=== PATIENT | male | born 1945 | race American Indian/Alaskan Native ===

== ENCOUNTER 2017-12-24 05:55 | Day surgery (SDC) | payer MEDICARE ==
[2017-12-24] MEDS ORDERED: NACL 0.9% 500 ML 500 ML ONE (06:45)
[2017-12-24] MEDS ORDERED: NACL 0.9% 500 ML 500 ML IV SCH (07:00)
[2017-12-24 07:10] LABS: Basophils % (Auto) 0.3 % (0.0-1.8); Eosinophils # (Auto) 0.2 K/mm3 (0.0-0.4); Eosinophils % (Auto) 2.6 % (0.0-4.3); Hematocrit 38.6 % (35.5-45.6); Hemoglobin 13.2 gm/dl (11.8-15.2); Lymphocytes # (Auto) 1.8 K/mm3 (1.2-5.4); Lymphocytes % (Auto) 26.4 % (13.4-35.0); Mean Corpuscular HGB Conc 34 % (32-34); Mean Corpuscular Hemoglobin 30 pg (28-32); Mean Corpuscular Volume 86 fl (84-94); Monocytes % (Auto) 14.5 % (0.0-7.3); Platelet Count 322 K/mm3 (140-440); Red Blood Count 4.47 M/mm3 (3.65-5.03); Red Cell Distribution Width 15.3 % (13.2-15.2)
[2017-12-24 07:21] LABS: INR 1.05 (0.87-1.13)
[2017-12-24 07:24] LABS: BUN/Creatinine Ratio 10; Blood Urea Nitrogen 5 mg/dL (9-20); Calcium 9.5 mg/dL (8.4-10.2); Hemolysis Index 3
[2017-12-24] MEDS ORDERED: HEPARIN/NS 5000 UNIT/500ML(CATH LAB) 1,000 ML IR ONE (10:03)
[2017-12-24] MEDS ORDERED: HEPARIN 10,000 UNITS/10 ML ONE (10:03)
[2017-12-24] MEDS ORDERED: NITROGLYCERIN SYRINGE 3 ML ONE (10:04)
[2017-12-24] MEDS ORDERED: CALAN ONE (10:04)
[2017-12-24] MEDS: SUBLIMAZE ONE ×2 (10:24→10:26)
[2017-12-24] MEDS: XYLOCAINE 2% INFILTRATI ONE ×2 (10:24→10:26)
[2017-12-24] MEDS: VERSED ONE ×2 (10:24→10:26)
--- NOTE | 2017-12-24 12:24 | Discharge Summary ---
Short Stay Discharge Plan Activity: advance as tolerated Weight Bearing Status: Full Weight Bearing Diet: low fat, low cholesterol, low salt, diabetic Wound: keep clean and dry Special Instructions: no heavy lifting (3 days), hold Metformin (48 hrs only) Follow up with: ERUM DOSS MD [Primary Care Provider] - 7 Days AUGUSTA SILVA MD [Staff Physician] - 7 Days Forms: [facility] PCI D/C Instructions
[2017-12-24] MEDS ORDERED: NACL 0.9% 1000 ML 1,000 ML IV SCH (13:00)
--- NOTE | 2017-12-24 13:49 | Cardiac Catherization Report ---
CARDIAC CATHETERIZATION REPORT REASON FOR PROCEDURE: The patient is a 72-year-old man with a history of dilated cardiomyopathy, abnormal thallium stress test, referred for cardiac catheterization and coronary angiography. PROCEDURE: 1. Left heart catheterization. 2. Selective left and right coronary angiography. 3. Left ventricle angiography. PROCEDURE: The patient was prepped and draped in a sterile fashion after informed consent. The right radial cath site was prepped and draped after a negative Germain's test. The right radial artery was entered using Seldinger technique followed by placement of a 6-[place] hydrophilic sheath. Routine radial cocktail was given via the sheath. A #3.5 left Franchesca was used for left coronary angiography. A #4 right Franchesca was used for right coronary angiography. A pigtail catheter was used for left ventricular angiography. The catheters were removed, sheath removed, and hemostasis achieved using a TR band. The patient was returned to the postprocedure unit in stable condition. There were no complications. FINDINGS: HEMODYNAMICS: Left ventricle end diastolic pressure was 10. Ascending aortic pressure was 164/59. There was no significant pressure gradient on pullback across the aortic valve. CORONARY ANGIOGRAPHY: The left main coronary artery was free of significant disease. The left anterior descending artery contained diffuse mild atherosclerosis of its mid segment. There was an up to 20% luminal stenosis of the mid LAD. The circumflex artery and its obtuse marginal branches contained diffuse mild atherosclerosis. The right coronary artery was alert, relatively small caliber vessel, but dominant. This vessel was free of significant disease. Left ventricle was moderately dilated. There was severe left ventricular systolic dysfunction, diffuse hypokinesis. Left ventricular systolic ejection fraction estimated at 30%. CONCLUSION: 1. Mild nonobstructive coronary disease as above. 2. Dilated nonischemic cardiomyopathy, severe left ventricular systolic dysfunction, ejection fraction estimated at 30%. RECOMMENDATION: 1. Risk factor modification. 2. Medical therapy for nonischemic cardiomyopathy and chronic systolic heart failure. JOB# [id number] CA/NTS
[2017-12-24 14:27] VITALS: BP 178/88
== END 2017-12-24 14:50 | disposition home or self-care (01) ==
LOC: CATHLABREC 05:55
PROVIDERS: ATTEND Internal Medicine Cardiovascular Disease
DX: I67.89 Other cerebrovascular disease (principal); I25.10 Atherosclerotic heart disease of native coronary artery without angina pectoris; I11.9 Hypertensive heart disease without heart failure; I42.8 Other cardiomyopathies; E11.9 Type 2 diabetes mellitus without complications; E78.00 Pure hypercholesterolemia, unspecified; J44.9 Chronic obstructive pulmonary disease, unspecified; K21.9 Gastro-esophageal reflux disease without esophagitis; D64.9 Anemia, unspecified; I69.354 Hemiplegia and hemiparesis following cerebral infarction affecting left non-dominant side; F17.200 Nicotine dependence, unspecified, uncomplicated; Z79.01 Long term (current) use of anticoagulants; Z79.82 Long term (current) use of aspirin; Z79.4 Long term (current) use of insulin
CPT/HCPCS: 36415; 80048; 85025; 85610; 85730; 93005; 93010; 93458; 99156; 99157; C1894; J1644; J2250; J3010; J7040; Q9967